=== PATIENT | male | born 1990 | race Caucasian/White ===

== ENCOUNTER 2018-10-02 11:08 | Emergency (ER) | payer OTHER ==
[2018-10-02 11:16] VITALS: BP 110/56; PULSE 78; TEMP 98.5; BMI 22.8
[2018-10-02] MEDS ORDERED: IBUPROFEN 600 MG TABLET (FP) PO ONE ×2 (12:05→12:18)
--- NOTE | 2018-10-02 12:14 | PDOC ---
History of Present Illness - General Chief Complaint: Pain, Acute Stated Complaint: LT LEG PAIN Time Seen by Provider: 10/02/18 11:39 History Source: Patient Exam Limitations: No Limitations Past History - Past Medical History Allergies/Adverse Reactions: Allergies Allergy/AdvReac Type Severity Reaction Status Date / Time No Known Allergies Allergy Verified 10/02/18 11:14 Home Medications: Ambulatory Orders Cyclobenzaprine HCl [Flexeril -] 10 mg PO TID PRN #21 tablet 10/02/18 COPD: No Dementia: No Disorders: No - Surgical History Cholecystectomy: No GI Surgery: No - Immunization History Immunization Up to Date: No - Suicide/Smoking/Psychosocial Hx Smoking History: Never smoked Have you smoked in the past 12 months: No Information on smoking cessation initiated: No Hx Alcohol Use: No Drug/Substance Use Hx: No *Physical Exam - Vital Signs Last Vital Signs Temp Pulse Resp BP Pulse Ox 98.5 F 78 18 110/56 L 98 10/02/18 11:15 10/02/18 11:15 10/02/18 11:15 10/02/18 11:15 10/02/18 11:15 - Physical Exam General Appearance: No: Apparent Distress Respiratory/Chest: positive: Lungs Clear, Normal Breath Sounds. negative: Respiratory Distress Cardiovascular: positive: Regular Rhythm, Regular Rate, S1, S2. negative: Murmur Musculoskeletal: positive: Other (Negative SLR test). 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 Has been taking Tylenol without relief of pain. Denies fever, sob, cp,abd pain, n/v, numbness/tingling/weakness of extremities, saddle/groin paresthesia, bowel/bladder incontinence. Possible sciatica given distribution of pain Will give Motrin, Flexeril stable for d/c 10/02/18 12:07 *DC/Admit/Observation/Transfer Diagnosis at time of Disposition: Sciatica Qualifiers: Laterality: left Qualified Code(s): M54.32 - Sciatica, left side - Discharge Dispostion Disposition: HOME Condition at time of disposition: Stable Decision to Admit order: No - Prescriptions Prescriptions: Cyclobenzaprine HCl [Flexeril -] 10 mg PO TID PRN #21 tablet PRN Reason: Muscle Spasms - Referrals Referrals: ON STAFF,NOT [Primary Care Provider] - - Patient Instructions Printed Discharge Instructions: DI for Sciatica Additional Instructions: Thank you for choosing [facility]. It was a pleasure taking care of you. You may possibly have sciatica. You may take Motrin 600 mg every 4 hours by mouth as needed for mild to moderate pain. Take Motrin with food. You were also prescribed muscle relaxer to take as needed. This medication can also make you drowsy so please be cautious with driving or performing heavy physical work. Warm compresses may also help. Follow-up with your doctor in 2-3 days. Return to the Emergency Department if your symptoms worsen or persist, you have fever, shortness of breath, chest pain, severe abdominal pain, vomiting, weakness of extremities (arms and/or legs), numbness around groin, unable to control bowel/bladder movements or other concerning symptoms. Adis por elegir el [facility]. Fue un placer cuidar de ti. Es posible que tenga citica. Puede gloria Motrin 600 mg cada 4 horas por va oral segn sea necesario para el dolor leve a moderado. [place] Motrin con la comida. Tambin le recetaron un relajante muscular para que lo tome segn sea necesario. [place]olanda medicamento tambin puede causarle somnolencia, as que tenga cuidado al conducir o realizar trabajos fsicos pesados. Las compresas calientes tambin pueden ayudar. Seguimiento con hobson mdico en 2-3 erazo. Regrese al Departamento de Emergencias si fide sntomas empeoran o persisten, tiene fiebre, dificultad para respirar, dolor en el pecho, dolor abdominal intenso, vmitos, debilidad en las extremidades (brazos y / o piernas), entumecimiento alrededor de la crystal, incapaz de controlar el intestino / vejiga Movimientos u otros sntomas relacionados. - Post Discharge Activity
[2018-10-02] MEDS ORDERED: CYCLOBENZAPRINE HCL 10 MG TABLET (FP) PO ONE (12:18)
[2018-10-02] MEDS ORDERED: CYCLOBENZAPRINE HCL 10 MG TABLET (FP) ONE (12:19)
[2018-10-02] MEDS ORDERED: CYCLOBENZAPRINE HCL 5 MG TABLET PO ONE (12:20)
== END 2018-10-02 12:23 | disposition home or self-care (01) ==
LOC: JERFT 11:08
DX: M54.32 Sciatica, left side (principal)
CPT/HCPCS: 99281-25